=== PATIENT | male | born 1995 | race Caucasian/White ===

== ENCOUNTER 2019-10-11 18:30 | Emergency (ER) | payer OTHER ==
[~2019-10-11] VITALS: Ht 167.6 cm; Wt 88.5 kg
--- NOTE | 2019-10-11 19:38 | REP ---
Clinical: Trauma. Technique: AP, lateral, bilateral oblique views right third digit . Findings: The osseous structures and joint spaces are intact and normal. There is no evidence for acute fracture or dislocation. Surrounding soft tissues are unremarkable. No subcutaneous emphysema or radiodense foreign body. Impression: No acute fracture or dislocation. Electronically Signed by Meliton Aleman MD 10/11/2019 07:30 P
[2019-10-11] MEDS ORDERED: LIDOCAINE 1% MDV 20ML VIAL SC ONE (20:15)
[2019-10-11] MEDS ORDERED: KEFL500C17 PO (21:04)
[2019-10-11 21:10] VITALS: BP 117/59
== END 2019-10-11 21:13 | disposition home or self-care (01) ==
LOC: M ED 18:30
DX: S61.312A Laceration without foreign body of right middle finger with damage to nail, initial encounter (principal); W23.0XXA Caught, crushed, jammed, or pinched between moving objects, initial encounter; Y92.018 Other place in single-family (private) house as the place of occurrence of the external cause; F17.210 Nicotine dependence, cigarettes, uncomplicated